=== PATIENT | female | born 1990 | race Caucasian/White ===

== ENCOUNTER 2019-02-28 15:19 | Emergency (ER) | payer OTHER ==
--- OUTSIDE RECORDS SUMMARY | 2019-02-28 15:36 | XMS REPORT | Continuity of Care Document ---
:1990 External Reference #:[id number] Author Name Savita Dumont NP (transmitted by agent of provider Martin Thorne) Address [address] [place] [address] Care Team Providers Name Role Phone Jese Kapadia MD - Otolaryngology Care Team Information Paper Winder Taty Guidry M.D. Care Team Information Paper Winder [phone] Problems Active Problems Provider Date Allergic rhinitis PATRICK Grimes Onset: 08/31/2018 Allergic rhinitis due to pollen PATRICK Grimes Onset: 08/31/2018 Uncomplicated moderate persistent asthma Martin Thorne MD Onset: Social History Type Date Description Comments Sex Unknown Tobacco Use Start: Unknown Patient has never smoked Tobacco Use Start: Unknown No Second Hand Smoke Exposure Smoking Status Reviewed: 08/31/18 No Second Hand Smoke Exposure Allergies, Adverse Reactions, Alerts Description No Known Drug Allergies Medications Active Medications SIG Qnty Indications Ordering Provider Date Nasonex 2 intranasal puffs 1units J30.1 Martin Rolon 08/31/2018 50mcg/Act every day MD Mati Suspension Albuterol Sulfate 1 vial every 4h as 75ml J45.40 Savita Dumont NP 2018 needed (2.5mg/3ML) 0.083% Nebulizer Claritin one tablet by 30tabs Savita Dumont NP 08/15/2018 10mg mouth every Tablets morning Hydroxine Martin Rolon 07/27/2018 MD Mati Rioperidone Martin Rolon 07/27/2018 MD Mati Levalbuterol HCL use 1 vial via 75ml Martin A. 11/11/2017 nebulizer four MD Mati 1.25mg/3ML times daily Nebulizer Citalopram twice a day 90tabs Christopher A. 11/08/2017 Hydrobromide MD Mati 20mg Tablets Breo Ellipta inhale one puff by 60units J45.40 Savita Dumont NP 2017 mouth every day 200-25mcg/Inh Aerosol Oxybutynin Chloride Take One Tablet By Unknown ER Mouth Every Day 10mg Tablets ER 24HR Citalopram Unknown Hydrobromide 40mg Tablets Risperidone Unknown 1mg Tablets Lorazepam Unknown 1mg Tablets Divalproex Sodium Unknown 500mg Tablets Benztropine Unknown Mesylate 0.5mg Tablets Ranitidine HCL 2 milliliters by Unknown mouth three times 75mg/5ML Syrup a day Hydroxyzine HCL take one tablet by Unknown mouth 3-4x per day 25mg Tablets as needed for itching Divalproex Sodium Unknown 250mg Tablets DR Swenson HFA 2 puffs every 4 as 8.500[facility] Mati 108(90Base) mcg/Act Aerosol Propranolol HCL take one Unknown capsule/tablet 10mg Tablets daily by mouth for essential tremors Topiramate one tablet (25 mg) Unknown 25mg by mouth every Tablets night at bedtime Benadryl Allergy 5 milliliters by Unknown Childrens mouth four times a day as needed 12.5mg/5ML Liquid Immunizations Description No Information Available Vital Signs Date Vital Result Comment 08/31/2018 1:09pm BP Systolic 110 mmHg BP Diastolic 80 mmHg Height 67 inches 5'7" Weight 245.00 lb BMI (Body Mass Index) 38.4 kg/m2 Heart Rate 98 /min Respiratory Rate 18 /min Body Temperature 98.1 F O2 % BldC Oximetry 98 % 07/27/2018 3:20pm BP Systolic 120 mmHg BP Diastolic 70 mmHg Height 67 inches 5'7" Weight 236.00 lb BMI (Body Mass Index) 37.0 kg/m2 Heart Rate 86 /min Respiratory Rate 18 /min O2 % BldC Oximetry 97 % Results Description No Information Available Procedures Description No Information Available Medical Devices Description No Information Available Encounters Type Date Location Provider Dx Diagnosis Office Visit 02/08/2019 [place] Savita Dumont NP J45.40 Moderate persistent 1:30p asthma, uncomplicated J30.89 Other allergic rhinitis Office Visit 08/31/2018 1:00p PATRICK Cardenas J30.1 Allergic rhinitis due to pollen J30.89 Other allergic rhinitis J45.40 Moderate persistent asthma, uncomplicated Assessments Date Code Description Provider 02/08/2019 J45.40 Moderate persistent asthma, uncomplicated Savita Dumont NP 02/08/2019 J30.89 Other allergic rhinitis Savita Dumont NP 08/31/2018 J30.1 Allergic rhinitis due to pollen Martin Thorne MD 08/31/2018 J30.1 Allergic rhinitis due to pollen PATRICK Grimes 08/31/2018 J30.89 Other allergic rhinitis Martin Thorne MD 08/31/2018 J30.89 Other allergic rhinitis PATRICK Grimes 08/31/2018 J45.40 Moderate persistent asthma, uncomplicated Martin Thorne MD 08/31/2018 J45.40 Moderate persistent asthma, uncomplicated PATRICK Grimes Plan of Treatment Future Appointment(s):08/09/2019 1:00 pm - [facility] Arevalo at [facility] Functional Status Description No Information Available Mental Status Description No Information Available Referrals Description No Information Available
--- OUTSIDE RECORDS SUMMARY | 2019-02-28 15:36 | XMS REPORT | Continuity of Care Document ---
:1990 External Reference #:[id number] Author Name Savita Dumont NP (transmitted by agent of provider Digna Pisano) Address [address] [place] [address] Care Team Providers Name Role Phone Jese Kapadia MD - Otolaryngology Care Team Information Leaf Size Picker [phone] aTty Guidry M.D. Care Team Information Leaf Size Picker [phone] Problems Active Problems Provider Date Allergic rhinitis [...] HFA 2 puffs [facility] 4 [facility] MD Mati 108(90Base) mcg/Act Aerosol [...] Date Location Provider Dx Diagnosis Office Visit 08/31/2018 1:00p PATRICK Cardenas J30.1 Allergic rhinitis due to pollen J30.89 Other allergic rhinitis J45.40 Moderate persistent asthma, uncomplicated Assessments Date Code Description Provider 08/31/2018 J30.1 Allergic rhinitis due to pollen Martin Thorne MD 08/31/2018 J30.1 Allergic rhinitis due to pollen PATRICK Grimes 08/31/2018 J30.89 Other allergic rhinitis Martin Thorne MD 08/31/2018 J30.89 Other allergic rhinitis PATRICK Grimes 08/31/2018 J45.40 Moderate persistent asthma, uncomplicated Martin Thorne MD 08/31/2018 J45.40 Moderate persistent asthma, uncomplicated PATRICK Grimes Plan of Treatment No Information Available Functional Status Description No Information Available Mental Status Description No Information Available Referrals Description No Information Available
[2019-02-28 15:43] VITALS: BP 128/57
--- NOTE | 2019-02-28 16:31 | UC ---
Skin Complaint HPI - HPI Summary HPI Summary: 28-year-old female presents with complaints of red, circular, pruritic lesion to her right forearm. 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 She has been applying an antifungal cream that she was previously prescribed with improvement in symptoms. Denies fever, chills, pain , or drainage. - History of Current Complaint Chief Complaint: UCSkin Time Seen by Provider: 02/28/19 16:13 Stated Complaint: RASH Hx Obtained From: Patient Hx Last Menstrual Period: DEPO Pain Intensity: 0 - Allergy/Home Medications Allergies/Adverse Reactions: Allergies Allergy/AdvReac Type Severity Reaction Status Date / Time buspirone [From BuSpar] Allergy Altered Verified 02/28/19 15:44 Mental Status Home Medications: Home Medications Cholecalciferol TAB* [Vitamin D TAB*] 400 unit PO DAILY 02/28/19 [History Confirmed 02/28/19] Citalopram TAB* [CeleXA TAB*] 40 mg PO DAILY 02/28/19 [History Confirmed ] Loratadine [Claritin] 10 mg PO DAILY 02/28/19 [History Confirmed 02/28/19] Oxybutynin XL TAB* [Ditropan XL TAB*] 10 mg PO DAILY 02/28/19 [History Confirmed 02/28/19] Propranolol TAB* [Inderal TAB*] 10 mg PO DAILY 02/28/19 [History Confirmed 02/28] Topiramate 50 mg PO DAILY 02/28/19 [History Confirmed 02/28/19] hydrOXYzine HCL TAB* [Atarax TAB 50 MG *] 40 mg PO BEDTIME PRN 02/28/19 [ History Confirmed 02/28/19] risperiDONE TAB* [RisperDAL*] 1 mg PO DAILY 02/28/19 [History Confirmed 02/28/19 ] PMH/Surg Hx/FS Hx/Imm Hx Previously Healthy: Yes GI/ History: Gastroesophageal Reflux - Surgical History Surgical History: None - Family History Known Family History: Positive: Non-Contributory - Social History Occupation: Unemployed Lives: With Family Alcohol Use: None Substance Use Type: None Smoking Status (MU): Never Smoked Tobacco - Immunization History Most Recent Tetanus Shot: NO RECORD OF IT Review of Systems All Other Systems Reviewed And Are Negative: Yes Constitutional: Negative: Fever, Chills Skin: Positive: Other - See HPI Respiratory: Positive: Negative Cardiovascular: Positive: Negative Gastrointestinal: Positive: Negative Genitourinary: Positive: Negative Musculoskeletal: Positive: Negative Neurological: Positive: Negative Is Patient Immunocompromised?: No Physical Exam - Summary Physical Exam Summary: GENERAL APPEARANCE: Alert and cooperative obese adult female appears to be in no acute distress. CARDIAC: Normal S1 and S2. No S3, S4 or murmurs. Rhythm is regular. There is no peripheral edema, cyanosis or pallor. Extremities are warm and well perfused. Capillary refill is less than 2 seconds. Peripheral pulses intact. LUNGS: Clear to auscultation without rales, rhonchi, wheezing or diminished breath sounds. ABDOMEN: Positive bowel sounds. Soft, nondistended, nontender. No guarding or rebound. No masses or hepatosplenomegally. MUSKULOSKELETAL: ROM intact to all extremities. No joint erythema or tenderness. Normal muscular development. Normal gait. SKIN: Skin normal color, texture and turgor. Single circular erythematous lesion approximately 1.5 cm in diameter with scaling to the right mid posterior forearm. Triage Information Reviewed: Yes Vital Signs: Initial Vital Signs Temp 98.3 F 02/28/19 15:39 Pulse 105 02/28/19 15:39 Resp 16 02/28/19 15:39 BP 128/57 02/28/19 15:39 Pulse Ox 97 02/28/19 15:39 Vital Signs Reviewed: Yes Course/Dx - Course Course Of Treatment: 28-year-old female presents with complaints of red, circular, pruritic lesion to her right forearm. 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 She has been applying an antifungal cream that she was previously prescribed with improvement in symptoms. Denies fever, chills, pain , or drainage. Afebrile. Vital signs stable. Patient had a single circular erythematous lesion approximately 1.5 cm in diameter with scaling to the right mid posterior forearm consistent with tinea corpus. Patient states that she is currently out of the antifungal cream that she was previously prescribed therefore I will send in a prescription for clotrimazole 1% to be applied twice daily until clear. She is to follow-up with her primary care provider in one week if symptoms do not improve. Anticipatory guidance and warning symptoms were reviewed with the patient. Verbalizes understanding and agrees with plan of care. - Differential Diagnoses - Skin Complaint Differential Diagnoses: Cellulitis, Contact Dermatitis, Local Allergic Reaction , Tinea - Diagnoses Provider Diagnosis: Tinea corporis Discharge ED - Sign-Out/Discharge Documenting (check all that apply): Patient Departure All imaging exams completed and their final reports reviewed: No Studies - Discharge Plan Condition: Stable Disposition: HOME Prescriptions: Clotrimazole 1% CREAM* [Clotrimazole 1%*] 1 applic TOPICAL BID #1 tube Referrals: Samira Mims MD [Primary Care Provider] - 7 Days Additional Instructions: The lesion on your arm is consistent with ring work especially since it is improving with the antifungal cream you have been using. Apply clotrimazole cream to the affected area twice a day until clear. It may take as many as 3 weeks to completely treat the infection. Follow up with your primary care provider in 1 week if there is no improvement in symptoms. Seek immediate medical attention if you develop fever, have redness that spread , swelling of the arm, or any worsening of symptoms. - Billing Disposition and Condition Condition: STABLE Disposition: Home
== END 2019-02-28 16:38 | disposition home or self-care (01) ==
LOC: UCCORT 15:19
DX: B35.4 Tinea corporis (principal); Z88.8 Allergy status to other drugs, medicaments and biological substances
CPT/HCPCS: 99202; G0463